=== PATIENT | male | born 1995 | race Caucasian/White ===

== ENCOUNTER 2022-11-02 12:17 | Emergency (ER) | payer OTHER ==
[2022-11-02] MEDS ORDERED: DIAZEPAM 5 MG TABLET ONE (13:51)
[2022-11-02] MEDS ORDERED: IBUPROFEN 400 MG TAB ONE (13:51)
--- NOTE | 2022-11-02 15:06 | RAD REPORT ---
EXAM DESCRIPTION: RAD - Lumbar Spine 3 Views - 11/02/2022 2:44 pm CLINICAL HISTORY: Back pain FINDINGS: No fracture or dislocation is seen. No significant bone or joint abnormality noted
--- NOTE | 2022-11-02 15:06 | RAD REPORT ---
EXAM DESCRIPTION: RAD - Thoracic Spine Ap/Lat - 11/02/2022 2:44 pm CLINICAL HISTORY: Back pain FINDINGS: No fracture or dislocation is seen. No significant bone or joint abnormality noted
--- NOTE | 2022-11-02 15:28 | ER ---
Nurse's Notes [facility] Name: Urbano Snell Age: 27 yrs Sex: Male : 1995 Arrival Date: 11/02/2022 Time: 12:17 Bed Treatment Private MD: Diagnosis: Radiculopathy, lumbar region;Low back pain Presentation: 11/02 12:58 Chief complaint: Patient states: was working on tug boat , was pulling out a wire and iw it he felt his back pop, has pain to lower back right above right buttock. Coronavirus screen: At this time, the client does not indicate any symptoms associated with coronavirus-19. Ebola Screen: Patient negative for fever greater than or equal to 101.5 degrees Fahrenheit, and additional compatible Ebola Virus Disease symptoms Patient denies exposure to infectious person. Patient denies travel to an Ebola-affected area in the 21 days before illness onset. No symptoms or risks identified at this time. Initial Sepsis Screen: Does the patient meet any 2 criteria? No. Patient's initial sepsis screen is negative. Does the patient have a suspected source of infection? No. Patient's initial sepsis screen is negative. Risk Assessment: Do you want to hurt yourself or someone else? Patient reports no desire to harm self or others. Onset of symptoms was November 01, 2022. 12:58 Method Of Arrival: Ambulatory iw 12:58 Acuity: GREGORY 4 iw Triage Assessment: 16:21 General: Appears in no apparent distress. Behavior is calm, cooperative, appropriate os for age. Pain: Complains of pain in back. Musculoskeletal: lower back pain. Historical: - Allergies: 13:00 No Known Allergies; iw - Home Meds: 13:00 None [Active]; iw - PMHx: 13:00 None; iw - PSHx: 13:00 Tonsillectomy; iw - Immunization history:: Adult Immunizations. - Social history:: Smoking status: Patient denies any tobacco usage or history of. Screenin:21 [facility] ED Fall Risk Assessment (Adult) History of falling in the last 3 months, os including since admission No falls in past 3 months (0 pts) Confusion or Disorientation No (0 pts) Intoxicated or Sedated No (0 pts) Impaired Gait No (0 pts) Mobility Assist Device Used No (0 pt) Altered Elimination No (0 pt) Score/Fall Risk Level 0 - 2 = Low Risk Oriented to surroundings. Abuse screen: Denies threats or abuse. Nutritional screening: No deficits noted. Tuberculosis screening: No symptoms or risk factors identified. Vital Signs: 12:58 BP 146 / 88; Pulse 71; Resp 16; Temp 99; Pulse Ox 98% on R/A; Weight 99.79 kg; Height 6 iw ft. 0 in. ; Pain 4/10; 14:56 BP 124 / 64; Pulse 58; Resp 18; Temp 98.1; Pulse Ox 100% on R/A; mm9 12:58 Body Mass Index 29.84 (99.79 kg, 182.88 cm) iw 12:58 Pain Scale: Adult ED Course: 12:24 Patient arrived in ED. am2 12:45 Margarita Spangler FNP-C is PHCP. snw 12:45 Rodney Mckeon MD is Attending Physician. snw 12:59 Triage completed. iw 13:00 Arm band placed on. iw 13:10 Anne Rios, YOHANA is Primary Nurse. db 14:46 Lumbar Spine (3 Views) XRAY In Process Unspecified. EDMS 14:46 XRAY Thoracic Spine (Ap/lat) In Process Unspecified. EDMS 16:22 No provider procedures requiring assistance completed. Patient did not have IV access os during this emergency room visit. 16:23 Patient has correct armband on for positive identification. os Administered Medications: 14:07 Drug: Ibuprofen PO 400 mg Route: PO; os 16:21 Follow up: Response: No adverse reaction; Pain is decreased os 14:08 Drug: Diazepam PO 10 mg Route: PO; os 16:21 Follow up: Response: No adverse reaction; Pain is decreased os Medication: 16:23 VIS not applicable for this client. os Outcome: 15:27 Discharge ordered by . snw 16:22 Discharged to home ambulatory. os 16:22 Condition: improved 16:22 Discharge instructions given to Instructed on discharge instructions, medication usage, Demonstrated understanding of instructions, follow-up care, medications, Prescriptions given X 2. 16:23 Patient left the ED. os Signatures: Dispatcher [employer] EDMS Margarita Spangler FNP-C RIVET STICKER-Csnw Renetta Henry RN RN Marichuy Barker am2 Anne Rios RN RN db Martinez, Maria mm9 Kyle Raya RN RN os Corrections: (The following items were deleted from the chart) 13:00 13:00 PSHx: None; iw iw
--- NOTE | 2022-11-02 15:28 | EDPHYS ---
Physician Documentation [facility] Name: Urbano Snell Age: 27 yrs Sex: Male : 1995 Arrival Date: 11/02/2022 Time: 12:17 Bed Treatment Private MD: Rodney Hernandez HPI: 11/02 13:34 This 27 yrs old Male presents to ER via Ambulatory with complaints of Back Pain. snw 13:34 The patient presents with pain that is acute. The symptoms are located in the low back. snw Onset: The symptoms/episode began/occurred suddenly, last night. The pain radiates to the right low back. 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 [place] popping and now has right lower back pain. Severity of symptoms: At their worst the symptoms were moderate, severe. The patient has not experienced similar symptoms in the past. It is unknown whether or not the patient has recently seen a physician. Historical: - Allergies: 13:00 No Known Allergies; iw - Home Meds: 13:00 None [Active]; iw - PMHx: 13:00 None; iw - PSHx: 13:00 Tonsillectomy; iw - Immunization history:: Adult Immunizations. - Social history:: Smoking status: Patient denies any tobacco usage or history of. ROS: 13:33 Constitutional: Negative for fever, chills, and weight loss, Eyes: Negative for injury, snw pain, redness, and discharge, ENT: Negative for injury, pain, and discharge, Neck: Negative for injury, pain, and swelling, Cardiovascular: Negative for chest pain, palpitations, and edema, Respiratory: Negative for shortness of breath, cough, wheezing, and pleuritic chest pain, Abdomen/GI: Negative for abdominal pain, nausea, vomiting, diarrhea, and constipation, : Negative for injury, bleeding, discharge, and swelling, MS/Extremity: Negative for injury and deformity, Skin: Negative for injury, rash, and discoloration, Neuro: Negative for headache, weakness, numbness, tingling, and seizure, Psych: Negative for depression, anxiety, suicide ideation, homicidal ideation, and hallucinations. 13:33 Back: Positive for decreased range of motion, pain at rest, pain with movement, of the right low back. Exam: 13:33 Constitutional: This is a well developed, well nourished patient who is awake, alert, snw and in no acute distress. Head/Face: Normocephalic, atraumatic. Eyes: Pupils equal round and reactive to light, extra-ocular motions intact. Lids and lashes normal. Conjunctiva and sclera are non-icteric and not injected. Cornea within normal limits. Periorbital areas with no swelling, redness, or edema. ENT: Nares patent. No nasal discharge, no septal abnormalities noted. Tympanic membranes are normal and external auditory canals are clear. Oropharynx with no redness, swelling, or masses, exudates, or evidence of obstruction, uvula midline. Mucous membranes moist. Neck: Trachea midline, no thyromegaly or masses palpated, and no cervical lymphadenopathy. Supple, full range of motion without nuchal rigidity, or vertebral point tenderness. No Meningismus. Chest/axilla: Normal chest wall appearance and motion. Nontender with no deformity. No lesions are appreciated. Cardiovascular: Regular rate and rhythm with a normal S1 and S2. No gallops, murmurs, or rubs. Normal PMI, no JVD. No pulse deficits. Respiratory: Lungs have equal breath sounds bilaterally, clear to auscultation and percussion. No rales, rhonchi or wheezes noted. No increased work of breathing, no retractions or nasal flaring. Abdomen/GI: Soft, non-tender, with normal bowel sounds. No distension or tympany. No guarding or rebound. No evidence of tenderness throughout. Skin: Warm, dry with normal turgor. Normal color with no rashes, no lesions, and no evidence of cellulitis. MS/ Extremity: Pulses equal, no cyanosis. Neurovascular intact. Full, normal range of motion. Neuro: Awake and alert, GCS 15, oriented to person, place, time, and situation. Cranial nerves II-XII grossly intact. Motor strength 5/5 in all extremities. Sensory grossly intact. Cerebellar exam normal. Normal gait. Psych: Awake, alert, with orientation to person, place and time. Behavior, mood, and affect are within normal limits. 13:33 Back: pain, that is moderate, of the right low back, ROM is painful, with flexion, with extension, normal spinal alignment noted, CVA tenderness, is absent, muscle spasm, is not present. Vital Signs: 12:58 BP 146 / 88; Pulse 71; Resp 16; Temp 99; Pulse Ox 98% on R/A; Weight 99.79 kg; Height 6 iw ft. 0 in. ; Pain 4/10; 14:56 BP 124 / 64; Pulse 58; Resp 18; Temp 98.1; Pulse Ox 100% on R/A; mm9 12:58 Body Mass Index 29.84 (99.79 kg, 182.88 cm) iw 12:58 Pain Scale: Adult iw MDM: 13:20 Patient medically screened. karen 15:27 Differential diagnosis: arthritis, chronic back pain, Fatigue Fracture ruptured disc, snw sprain, vertebral fracture. Data reviewed: vital signs, nurses notes. I considered the following discharge prescriptions or medication management in the emergency department Medications were administered in the Emergency Department. See MAR. Counseling: I had a detailed discussion with the patient and/or guardian regarding: the historical points, exam findings, and any diagnostic results supporting the discharge/admit diagnosis, radiology results, the need for outpatient follow up, for definitive care, to return to the emergency department if symptoms worsen or persist or if there are any questions or concerns that arise at home. Response to treatment: the patient's symptoms have markedly improved after treatment. Special discussion: Based on the history and exam findings, there is no indication for further emergent testing or inpatient evaluation. I discussed with the patient/guardian the need to see the back specialist for further evaluation of the symptoms. I discussed with the patient/guardian the need to see the primary care provider for further evaluation of the symptoms. 11/02 13:32 Order name: Lumbar Spine (3 Views) XRAY; Complete Time: 15:26 snw 11/02 13:32 Order name: XRAY Thoracic Spine (Ap/lat); Complete Time: 15:26 snw Administered Medications: 14:07 Drug: Ibuprofen PO 400 mg Route: PO; os 16:21 Follow up: Response: No adverse reaction; Pain is decreased os 14:08 Drug: Diazepam PO 10 mg Route: PO; os 16:21 Follow up: Response: No adverse reaction; Pain is decreased os Disposition Summary: 11/02/22 15:27 Discharge Ordered Location: Home snw Condition: Stable snw Diagnosis - Radiculopathy, lumbar region snw - Low back pain snw Followup: snw - With: Emergency Department - When: As needed - Reason: Worsening of condition Followup: snw - With: Private Physician - When: 2 - 3 days - Reason: Recheck today's complaints, Continuance of care, Re-evaluation by your physician Discharge Instructions: - Discharge Summary Sheet snw - Acute Back Pain, Adult snw - Lumbosacral Radiculopathy snw - Musculoskeletal Pain snw - Rehydration, Adult snw - Heat Therapy snw - Radicular Pain snw Forms: - Work release form snw - Medication Reconciliation Form snw - Thank You Letter snw - Antibiotic Education snw - Prescription Opioid Use snw Prescriptions: - Diclofenac Sodium 75 mg Oral Tablet Sustained Release - take 1 tablet by ORAL route 2 times per day; 30 tablet; Refills: 0, Product snw Selection Permitted - orphenadrine citrate 100 mg Oral Tablet Sustained Release - take 1 tablet by ORAL route 2 times per day As needed; 20 tablet; Refills: 0, snw Product Selection Permitted Signatures: Dispatcher [employer] Rodney Ramírez MD MD cha Waters, Shelly, MACHINIST MECHANIC-C MACHINIST MECHANIC-Csnw Renetta Henry, YOHANA RN iw Kyle Raya RN RN os Corrections: (The following items were deleted from the chart) 13:00 13:00 PSHx: None; iw iw
[2022-11-02 17:57] VITALS: BP 124/64; TEMP 98.1; O2SAT 100
== END 2022-11-02 16:23 | disposition home or self-care (01) ==
LOC: ER 12:17
DX: M54.16 Radiculopathy, lumbar region (principal)
CPT/HCPCS: 72070; 72100; 99284